=== PATIENT | male | born 2000 | race Caucasian/White ===

== ENCOUNTER 2023-10-08 14:01 | Emergency (ER) | payer MEDICAID ==
[~2023-10-08] VITALS: Ht 180.3 cm; Wt 123.5 kg
[2023-10-08 14:21] VITALS: TEMP 98
[2023-10-08] MEDS: ketorolac trometh inj. 60 MG/2 ML VIAL IM ONE (15:05)
[2023-10-08] MEDS: HYDROcodone/acetaminophen 5mg/325mg tablet PO ONE (15:05)
[2023-10-08] MEDS: ketorolac tromethamine 15mg/ml inj. IM ONE (15:05)
[2023-10-08 16:32] VITALS: BP 142/78; PULSE 79; O2SAT 96
[2023-10-08 16:39] VITALS: RESP 20
== END 2023-10-08 16:40 | disposition home or self-care (01) ==
LOC: ER 14:02
DX: S30.0XXA Contusion of lower back and pelvis, initial encounter (principal); W19.XXXA Unspecified fall, initial encounter; Y93.89 Activity, other specified; Y92.89 Other specified places as the place of occurrence of the external cause; Y99.8 Other external cause status
CPT/HCPCS: 72100; 72220; 99284